=== PATIENT | male | born 1995 | race Two or more races ===

== ENCOUNTER 2018-02-04 00:14 | Emergency (ER) | payer MEDICAID ==
[~2018-02-04] VITALS: Ht 172.7 cm; Wt 104.3 kg
[2018-02-04 00:23] VITALS: BP 149/87
[2018-02-04] MEDS: TETANUS-DIPTH-ACEL PERTUSSIS 0.5ML SYRG IM ONE (02:20)
== END 2018-02-04 02:22 | disposition home or self-care (01) ==
LOC: ER 00:22
DX: S01.01XA Laceration without foreign body of scalp, initial encounter (principal); F10.10 Alcohol abuse, uncomplicated; W20.8XXA Other cause of strike by thrown, projected or falling object, initial encounter; Y93.89 Activity, other specified; Y92.89 Other specified places as the place of occurrence of the external cause; Y99.8 Other external cause status
CPT/HCPCS: 12002; 70450; 72125; 90471; 90715

== ENCOUNTER 2023-11-29 17:08 | Emergency (ER) | payer MEDICAID ==
[~2023-11-29] VITALS: Ht 172.7 cm; Wt 111.6 kg
[2023-11-29 18:33] VITALS: BP 165/81; PULSE 74; RESP 16; TEMP 98.4; O2SAT 98
[2023-11-29] MEDS ORDERED: AUG875T PO (18:58)
[2023-11-29] MEDS ORDERED: IBUP-1456 PO (19:41)
== END 2023-11-29 19:13 | disposition home or self-care (01) ==
LOC: ER 17:08
DX: R59.0 Localized enlarged lymph nodes (principal)